=== PATIENT | female | born 1955 | race Caucasian/White ===

== ENCOUNTER 2017-05-15 05:22 | Emergency (ER) | payer OTHER ==
[~2017-05-15] VITALS: Ht 154.9 cm; Wt 66.2 kg
[~2017-05-15 05:22] MED LIST: LEVO125T5 PO; LIPITOR80 MG PO; OMEG1CAP16 PO; TELM80TA PO
[2017-05-15] MEDS ORDERED: IOHEXOL 240 MG/ML 50ML VIAL. ONE (06:27)
[2017-05-15] MEDS ORDERED: IV NORMAL SALINE 1,000ML 1,000 ML IV SCH (06:30)
[2017-05-15] MEDS ORDERED: MORPHINE SULFATE 4 MG/ML DISP.SYRIN. IV/SQ PRN (06:30)
[2017-05-15 06:32] LABS: BASO % 0 % (0-3); EOS # 0.1 x10^3/uL (0.0-0.7); EOS % 1 % (0-3); HEMATOCRIT 37.3 % (36.0-47.0); HEMOGLOBIN 12.3 g/dL (12.0-15.5); LYMPH # 1.2 x10^3/uL (1.0-4.8); LYMPH % 10 % (24-48); MEAN CORPUSCULAR HEMOGLOBIN 28 pg (25-35); MEAN CORPUSCULAR HGB CONC 33 g/dL (31-37); MEAN CORPUSCULAR VOLUME 84 fL (79-100); MONO # 1.2 x10^3/uL (0.0-1.1); MONO % 11 % (0-9); NEUT # 9.2 x10^3uL (1.8-7.7); NEUT % 78 % (31-73); PLATELET COUNT 245 x10^3/uL (140-400); RED BLOOD COUNT 4.43 x10^6/uL (3.50-5.40); RED CELL DISTRIBUTION WIDTH 15.1 % (11.5-14.5); WHITE BLOOD COUNT 11.8 x10^3/uL (4.0-11.0)
[2017-05-15 06:34] LABS: ALBUMIN 3.4 g/dL (3.4-5.0); ALBUMIN/GLOBULIN RATIO 0.8 (1.0-1.7); CALCIUM 9.5 mg/dL (8.5-10.1); CREATININE 0.9 mg/dL (0.6-1.0); GFR 63.2; POTASSIUM 3.6 mmol/L (3.5-5.1); TOTAL BILIRUBIN 0.7 mg/dL (0.2-1.0); TOTAL PROTEIN 7.8 g/dL (6.4-8.2)
[2017-05-15 06:34] LABS: BACTERIA,URINE 0 /HPF (0-FEW); BILIRUBIN,URINE NEG (NEG); CLARITY,URINE CLEAR; COLOR,URINE YELLOW; GLUCOSE,URINE NEG (NEG); HYALINE CASTS, URINE OCC /HPF; NITRITE,URINE NEG (NEG); RBC,URINE OCC /HPF (0-2); SQUAMOUS EPITHELIAL CELL,UR FEW /LPF; UROBILINOGEN,URINE 0.2 mg/dL (0.2 mg/dL); WBC,URINE OCC /HPF (0-4)
[2017-05-15] MEDS ORDERED: CONTRAST GIVEN MC PRN (06:45)
[2017-05-15 06:46] LABS: AMPHETAMINE/METHAMPHETAMINE NEG (NEG); BARBITURATES NEG (NEG); BENZODIAZEPINES NEG (NEG); CANNABINOIDS NEG (NEG); COCAINE NEG (NEG); METHADONE NEG (NEG); OPIATES NEG (NEG); PHENCYCLIDINE NEG (NEG)
[2017-05-15] MEDS ORDERED: IOHEXOL 300 MG/ML 75 ML VIAL. IV ONE (07:00)
[2017-05-15] MEDS ORDERED: ONDANSETRON PF 4 MG/2 ML VIAL. IV ONE (07:00)
[2017-05-15] MEDS ORDERED: PROMETHAZINE 25 MG/ML VIAL IV ONE (07:20)
[2017-05-15] MEDS ORDERED: PROMETHAZINE 12.5 MG in IV NORMAL SALINE 50ML 50 ML IV PRN (07:30)
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
--- NOTE | 2017-05-15 08:13 | RAD ---
CT scan of the abdomen with IV contrast: History: 40 days of lower abdominal pain. Comparison:None. Procedure: Contiguous axial images of the abdomen were performed after the administration of 75 cc of Omni 300 IV contrast and without oral contrast. Findings: There is an infrarenal abdominal aortic aneurysm that measures as great as 5.0 cm in width and 4.5 cm in AP dimension. Liver: Unremarkable. Spleen: Unremarkable. Pancreas: Unremarkable. Adrenal Glands: Unremarkable. Right Kidney: Unremarkable. Left Kidney: Unremarkable. Aorta: Normal. There is no mass or lymphadenopathy. There is no free air. There is no free fluid. There has been prior cholecystectomy. CT of pelvis with contrast: The uterus is within normal limits. The ovaries appear within normal limits. There is no lymphadenopathy or free fluid. The bladder appears normal. There is pericolonic inflammation around a short segment of the proximal sigmoid colon mild wall thickening. There is moderate sigmoid diverticulosis. The appendix is normal. Impression: 1. Diverticulitis involving the proximal sigmoid colon. 2. Infrarenal abdominal aortic aneurysm.
[2017-05-15] MEDS ORDERED: CIPROFLOXACIN 400MG PREMIX 200 ML IV ONE (08:30)
[2017-05-15 09:14] VITALS: BP 137/88
--- NOTE | 2017-05-15 18:47 | EKG ---
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
== END 2017-05-15 09:32 | disposition short-term general hospital (02) ==
LOC: ER 05:22
DX: K57.92 Diverticulitis of intestine, part unspecified, without perforation or abscess without bleeding (principal); I71.4 Abdominal aortic aneurysm, without rupture; E78.5 Hyperlipidemia, unspecified; E11.9 Type 2 diabetes mellitus without complications; E03.9 Hypothyroidism, unspecified; I10 Essential (primary) hypertension; Z88.1 Allergy status to other antibiotic agents
CPT/HCPCS: 36415; 74177; 80053; 80307; 81001; 83605; 83690; 85025; 93005; 96361; 96365; 96366; 96368; 96375; 99285; G0480; J0744; J2270; J2405; J2550; Q9967; G0479; J7030

== ENCOUNTER 2017-06-14 12:37 | Emergency (ER) | payer OTHER ==
[~2017-06-14] VITALS: Ht 154.9 cm; Wt 66.2 kg
[2017-06-14] MEDS ORDERED: IV NORMAL SALINE 1,000ML 1,000 ML IV SCH (13:26)
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
[2017-06-14 13:37] LABS: BASO % 1 % (0-3); EOS # 0.1 x10^3/uL (0.0-0.7); EOS % 1 % (0-3); HEMATOCRIT 34.8 % (36.0-47.0); HEMOGLOBIN 11.7 g/dL (12.0-15.5); LYMPH # 1.6 x10^3/uL (1.0-4.8); LYMPH % 22 % (24-48); MEAN CORPUSCULAR HEMOGLOBIN 28 pg (25-35); MEAN CORPUSCULAR HGB CONC 34 g/dL (31-37); MEAN CORPUSCULAR VOLUME 85 fL (79-100); MONO # 0.4 x10^3/uL (0.0-1.1); MONO % 6 % (0-9); NEUT # 5.1 x10^3uL (1.8-7.7); NEUT % 70 % (31-73); PLATELET COUNT 275 x10^3/uL (140-400); RED CELL DISTRIBUTION WIDTH 17.4 % (11.5-14.5); WHITE BLOOD COUNT 7.3 x10^3/uL (4.0-11.0)
[2017-06-14] MEDS ORDERED: ONDANSETRON PF 4 MG/2 ML VIAL. IV ONE (13:45)
[2017-06-14 13:46] LABS: ALBUMIN 3.6 g/dL (3.4-5.0); ALBUMIN/GLOBULIN RATIO 0.9 (1.0-1.7); CALCIUM 9.2 mg/dL (8.5-10.1); CREATININE 0.9 mg/dL (0.6-1.0); GFR 63.2; POTASSIUM 3.2 mmol/L (3.5-5.1); TOTAL BILIRUBIN 0.5 mg/dL (0.2-1.0); TOTAL PROTEIN 7.6 g/dL (6.4-8.2)
[2017-06-14 13:47] LABS: BACTERIA,URINE 0 /HPF (0-FEW); BILIRUBIN,URINE NEG (NEG); CLARITY,URINE CLEAR; COLOR,URINE STRAW; GLUCOSE,URINE NEG (NEG); NITRITE,URINE NEG (NEG); RBC,URINE 0 /HPF (0-2); SQUAMOUS EPITHELIAL CELL,UR OCC /LPF; UROBILINOGEN,URINE 0.2 mg/dL (0.2 mg/dL); WBC,URINE 0 /HPF (0-4)
[2017-06-14] MEDS ORDERED: IOHEXOL 300 MG/ML 75 ML VIAL. IV ONE (14:00)
--- NOTE | 2017-06-14 14:09 | RAD ---
EXAM: CHEST 1 VIEW history: Dizziness COMPARISON: 06/14/2017 TECHNIQUE: Single portable radiograph of the chest FINDINGS: The cardiac silhouette is unremarkable. The lungs are clear bilaterally. The costophrenic sulci are clear and well demarcated. IMPRESSION: No radiographic evidence of an acute cardiopulmonary process.
--- NOTE | 2017-06-14 14:12 | EKG ---
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
[2017-06-14] MEDS ORDERED: POTASSIUM CHLORIDE 20 MEQ TABLET.ER. PO ONE (14:30)
--- NOTE | 2017-06-14 14:34 | RAD ---
Examination: CT of the abdomen pelvis with IV contrast History: History of abdominal pain, distention, and leg numbness Comparison: 05/15/2017 Technique: Axial CT images of the abdomen pelvis were performed with IV contrast. Coronal and sagittal reformats are performed PQRS Compliance Statement: One or more of the following individualized dose reduction techniques were utilized for this examination: 1. Automated exposure control 2. Adjustment of the mA and/or kV according to patient size 3. Use of iterative reconstruction technique Findings: The visualized bibasal lungs are clear. No evidence of free air identified in the abdomen. Few scattered cystic foci identified in the liver measuring up to 1 cm in the left lobe likely cysts. Cholecystectomy clips are identified. The visualized spleen, adrenals grossly appears unremarkable. The bladder is mildly distended. The visualized pancreas grossly appears unremarkable. The small bowel is nondilated. Feces and gas noted in the colon. There is minimal fat stranding identified about the descending colon could be due to nondistention or mild colitis. Multiple sigmoid colon diverticulosis identified. Urinary bladder is moderately distended. The bilateral ureters are mildly distended. The visualized uterus, adnexa grossly appears unremarkable. Bilateral kidneys enhance symmetrically. Mild prominent appearing bilateral extrarenal pelvis. Infrarenal abdominal aortic surgical changes identified. No evidence of lytic bony destructive lesion. Mild degenerative changes lumbar spine. Impression: 1. Minimal fat stranding identified about the descending colon could be due to nondistention or mild colitis. 2. Multiple sigmoid colon diverticulosis. 3. Surgical changes of infrarenal abdominal aortic aneurysm repair. 4. Moderately distended urinary bladder and bilateral ureters.
[2017-06-14] MEDS ORDERED: METR500T PO (15:11)
[2017-06-14 15:28] VITALS: BP 144/85
[2017-06-14] MEDS ORDERED: metroNIDAZOLE 500 MG TABLET PO ONE (15:30)
[2017-06-14] MEDS ORDERED: FLUCONAZOLE 100 MG TABLET. PO ONE (15:30)
== END 2017-06-14 15:35 | disposition home or self-care (01) ==
LOC: ER 12:37
DX: K52.9 Noninfective gastroenteritis and colitis, unspecified (principal); E87.6 Hypokalemia; I71.4 Abdominal aortic aneurysm, without rupture; E03.9 Hypothyroidism, unspecified; E11.9 Type 2 diabetes mellitus without complications; E78.5 Hyperlipidemia, unspecified; I10 Essential (primary) hypertension; Z90.49 Acquired absence of other specified parts of digestive tract; Z88.1 Allergy status to other antibiotic agents
CPT/HCPCS: 36415; 71045; 74177; 80053; 81001; 82550; 83690; 84484; 85025; 87040; 93005; 96374; 99285; J2405; Q9967; J7030

== ENCOUNTER 2017-10-12 23:54 | Inpatient (IN) | payer OTHER ==
[~2017-10-12] VITALS: Ht 154.9 cm; Wt 65.1 kg
[~2017-10-12 23:54] MED LIST changes: +METR500T PO
--- NOTE | 2017-10-12 23:59 | ED.ADGEN ---
Past History Past Medical History: Cancer, Diabetes, High Cholesterol, Hypertension, Hypothyroid, Other Past Surgical History: Cholecystectomy, Other Alcohol Use: None Drug Use: None Adult General Chief Complaint Chief Complaint " .. I ve been sick the last few days... I been running a fever.. I maybe over did painting... the last couple days... I did have aortic repair in .. May. ... but I so dry... and weak.. and wobble.. dizzy..." HPI HPI Patient is a 61 year old female who presents with above hx and complaints presents with dizziness, nausea, coughing, dyspnea, fever, and generalized malaise and myalgia. Patient arrived of fever was 102.7. Patient denies any specific ill contacts or travel. Patient has not had any changes in meds. Patient denies any history of immunosuppression. Patient normally follows with Dr. Snow. Review of Systems Review of Systems Constitutional: History of fever or chills [] Eyes: Denies change in visual acuity, redness, or eye pain [] HENT: Denies nasal congestion or sore throat [] Respiratory: History of cough and shortness of breath [] Cardiovascular: No additional information not addressed in HPI [] GI: Denies abdominal pain, nausea, vomiting, bloody stools or diarrhea [] : Denies dysuria or hematuria [] Musculoskeletal: Denies back pain or joint pain [] Integument: Denies rash or skin lesions [] Neurologic: Denies headache, pains of generalized weakness. Denies sensory changes [] Endocrine: Denies polyuria or polydipsia [] All other systems were reviewed and found to be within normal limits, except as documented in this note. Family History Family History Noncontributory Current Medications Current Medications Current Medications Medications (Trade) Dose Ordered Sig/Maxime Start Time Stop Time Status Last Admin Dose Admin Acetaminophen (Tylenol) 1,000 mg 1X ONCE 10/13/17 01:00 10/13/17 01:01 DC 10/13/17 01:00 1,000 MG Albuterol/ Ipratropium (Duoneb) 3 ml QID 10/13/17 09:00 10/14/17 08:59 UNV Azithromycin (Zithromax) 500 mg 1X ONCE 10/13/17 01:00 10/13/17 01:01 DC 10/13/17 01:00 500 MG Ceftriaxone Sodium 1 gm/ Sodium Chloride 50 ml @ 100 mls/hr 1X ONCE 10/13/17 00:30 10/13/17 00:59 UNV Ceftriaxone Sodium (Rocephin) 1 gm ONCE ONCE 10/13/17 01:00 10/13/17 01:01 DC 10/13/17 01:05 1 GM Lactated Ringer's 1,000 ml @ 160 mls/hr Q6H15M 10/13/17 01:30 UNV Ondansetron HCl (Zofran Odt) 8 mg 1X ONCE 10/13/17 01:00 10/13/17 01:01 DC 10/13/17 01:00 8 MG Potassium Chloride (KCl Oral Soln) 40 meq 1X ONCE 10/13/17 01:45 10/13/17 01:46 UNV See nursing for home meds Allergies Allergies Allergies Coded Allergies Type Severity Reaction Last Updated Verified sulfamethoxazole Allergy Intermediate Rash 04/16/13 Yes trimethoprim Allergy Intermediate Rash 04/16/13 Yes Physical Exam Physical Exam Constitutional:in acute distress, non-toxic appearance. [] HENT: Normocephalic, atraumatic, bilateral external ears normal, oropharynx dry , no oral exudates, nose normal. [] Eyes: PERRLA, EOMI, conjunctiva normal, no discharge. [] Neck: Normal range of motion, no tenderness, supple, no stridor. [] Cardiovascular: Tachycardia Heart rate regular rhythm, no murmur [] Lungs & Thorax: Bilateral breath sounds scattered wheezes and some basilar rhonchi on auscultation [] Abdomen: Bowel sounds normal, soft, no tenderness, no masses, no pulsatile masses. [] Large midline scar from the aortic aneurysm repair. Skin: Warm, dry, no erythema, no rash. [] Poor turgor. Back: No tenderness, no CVA tenderness. [] Extremities: No tenderness, no cyanosis, no clubbing, ROM intact, no edema. [] Neurologic: Alert and oriented X 3, normal motor function, normal sensory function, no focal deficits noted. [] Psychologic: Affect anxious, judgement normal, mood normal. [] Current Patient Data Vital Signs Vital Signs Date Time Temp Pulse Resp B/P (MAP) Pulse Ox O2 Delivery O2 Flow Rate FiO2 10/12/17 23:56 99.6 102 20 93 Room Air Lab Results Laboratory Tests Test 10/13/17 00:12 10/13/17 00:27 10/13/17 00:36 Urine Collection Type Unknown Urine Color Yellow Urine Clarity Clear Urine pH 6.0 Urine Specific [place] <=1.005 Urine Protein 30 mg/dl (NEG-TRACE) Urine Glucose (UA) Neg mg/dL (NEG) Urine Ketones (Stick) Neg mg/dL (NEG) Urine Blood Small (NEG) Urine Nitrite Neg (NEG) Urine Bilirubin Neg (NEG) Urine Urobilinogen Dipstick 0.2 mg/dL (0.2 mg/dL) Urine Leukocyte Esterase Trace (NEG) Urine RBC 0 /HPF (0-2) Urine WBC 1-4 /HPF (0-4) Urine Squamous Epithelial Cells Few /LPF Urine Bacteria 0 /HPF (0-FEW) White Blood Count 7.3 x10^3/uL (4.0-11.0) Red Blood Count 4.26 x10^6/uL (3.50-5.40) Hemoglobin 12.2 g/dL (12.0-15.5) Hematocrit 35.2 % (36.0-47.0) L Mean Corpuscular Volume 83 fL (79-100) Mean Corpuscular Hemoglobin 29 pg (25-35) Mean Corpuscular Hemoglobin Concent 35 g/dL (31-37) Red Cell Distribution Width 15.4 % (11.5-14.5) H Platelet Count 195 x10^3/uL (140-400) Neutrophils (%) (Auto) 87 % (31-73) H Lymphocytes (%) (Auto) 4 % (24-48) L Monocytes (%) (Auto) 8 % (0-9) Eosinophils (%) (Auto) 1 % (0-3) Basophils (%) (Auto) 0 % (0-3) Neutrophils # (Auto) 6.4 x10^3uL (1.8-7.7) Lymphocytes # (Auto) 0.3 x10^3/uL (1.0-4.8) L Monocytes # (Auto) 0.5 x10^3/uL (0.0-1.1) Eosinophils # (Auto) 0.1 x10^3/uL (0.0-0.7) Basophils # (Auto) 0.0 x10^3/uL (0.0-0.2) Prothrombin Time 10.7 SEC (9.4-11.4) Prothrombin Time INR 1.0 (0.9-1.1) PTT 27 SEC (23-33) D-Dimer (Desiree) 2.23 mg/L (0.00-0.50) H Sodium Level 136 mmol/L (136-145) Potassium Level 2.0 mmol/L (3.5-5.1) *L Chloride Level 97 mmol/L (98-107) L Carbon Dioxide Level 33 mmol/L (21-32) H Anion Gap 6 (6-14) Blood Urea Nitrogen 12 mg/dL (7-20) Creatinine 1.4 mg/dL (0.6-1.0) H Estimated GFR (Cockcroft-Gault) 38.0 Glucose Level 135 mg/dL (70-99) H Lactic Acid Level 1.3 mmol/L (0.4-2.0) Calcium Level 8.8 mg/dL (8.5-10.1) Magnesium Level 1.7 mg/dL (1.8-2.4) L Total Bilirubin 1.1 mg/dL (0.2-1.0) H Direct Bilirubin 0.3 mg/dL (0.0-0.2) H Aspartate Amino Transferase (AST) 98 U/L (15-37) H Alanine Aminotransferase (ALT) 71 U/L (14-59) H Alkaline Phosphatase 106 U/L (46-116) Creatine Kinase 64 U/L (26-192) Creatine Kinase MB (Mass) < 0.5 ng/mL (0.0-3.6) Creatine Kinase MB Relative Index 0.8 % (0-4) Troponin I Quantitative < 0.017 ng/mL (0-0.055) UO-Ixy-D-Type Natriuretic Peptide 164 pg/mL (0-124) H Total Protein 7.7 g/dL (6.4-8.2) Albumin 3.2 g/dL (3.4-5.0) L Lipase 116 U/L (73-393) Influenza Type A (Rapid) Negative (NEGATIVE) Influenza Type B (Rapid) Negative (NEGATIVE) EKG EKG My interpretation of EKG shows a sinus rhythm at 91 bpm. There is leftward axis. Some nonspecific T changes in anterior lateral findings. But no findings of acute STEMI with contralateral changes.[] Radiology/Procedures Radiology/Procedures My interpretation of chest x-ray shows bilateral patchy pneumonia. Clips from previous gallbladder surgery. No free air under the diaphragm. Cardiomegaly.[] Course & Med Decision Making Course & Med Decision Making Pertinent Labs and Imaging studies reviewed. (See chart for details) Discussed presentation, testing, tx. plan with Dr Carlson. Will admit for further eval and tx. [] Final Impression Final Impression 1. SIRS 2. Fever[] 3. Hypokalemia 2.0 4. Hypomagnesium 5. Pneumonia 6. Dehydration 7. Elevated D-dimer Dragon Disclaimer Dragon Disclaimer This electronic medical record was generated, in whole or in part, using a voice recognition dictation system. CHAI PHELPS MD Oct 12, 2017 23:59
[2017-10-13] VITALS (8 sets, daily range): BP systolic 109–121; BP diastolic 62–75
--- NOTE | 2017-10-13 00:40 | EKG ---
[address] [address] Test Date: 2017-10-13 Test Time: 00:34:42 Pat Name: MARICARMEN LUBIN Department: Room: Gender: F Addresser: MICHELLE : 1955 Requested By: CHAI PHELPS Order Number: [id number] Reading MD: Measurements Intervals [place] Rate: 91 P: 21 NE: 154 QRS: -10 QRSD: 90 T: 146 QT: 332 QTc: 410 Interpretive Statements SINUS RHYTHM LEFTWARD AXIS QRS(T) CONTOUR ABNORMALITY CONSIDER ANTEROSEPTAL MYOCARDIAL DAMAGE ST & T ABNORMALITY, CONSIDER ANTEROLATERAL ISCHEMIA OR LEFT VENTRICULAR STRAIN INFEROLATERAL ISCHEMIA OR LEFT VENTRICULAR STRAIN ABNORMAL ECG RI6.01 Compared to ECG 06/14/2017 12:45:22 No significant changes
[2017-10-13 00:43] LABS: BACTERIA,URINE 0 /HPF (0-FEW); BILIRUBIN,URINE NEG (NEG); CLARITY,URINE CLEAR; COLOR,URINE YELLOW; GLUCOSE,URINE NEG (NEG); NITRITE,URINE NEG (NEG); RBC,URINE 0 /HPF (0-2); SQUAMOUS EPITHELIAL CELL,UR FEW /LPF; UROBILINOGEN,URINE 0.2 mg/dL (0.2 mg/dL)
[2017-10-13 00:54] LABS: BASO % 0 % (0-3); EOS # 0.1 x10^3/uL (0.0-0.7); EOS % 1 % (0-3); HEMATOCRIT 35.2 % (36.0-47.0); HEMOGLOBIN 12.2 g/dL (12.0-15.5); LYMPH # 0.3 x10^3/uL (1.0-4.8); LYMPH % 4 % (24-48); MEAN CORPUSCULAR HEMOGLOBIN 29 pg (25-35); MEAN CORPUSCULAR HGB CONC 35 g/dL (31-37); MEAN CORPUSCULAR VOLUME 83 fL (79-100); MONO # 0.5 x10^3/uL (0.0-1.1); MONO % 8 % (0-9); NEUT # 6.4 x10^3uL (1.8-7.7); NEUT % 87 % (31-73); PLATELET COUNT 195 x10^3/uL (140-400); RED BLOOD COUNT 4.26 x10^6/uL (3.50-5.40); RED CELL DISTRIBUTION WIDTH 15.4 % (11.5-14.5); WHITE BLOOD COUNT 7.3 x10^3/uL (4.0-11.0)
[2017-10-13] MEDS ORDERED: cefTRIAXone IV Push 1 GM VIAL. IVP ONE (01:00)
[2017-10-13] MEDS ORDERED: IV RINGERS SOLUTION,LACTATED 1,000 ML IV SCH (01:00)
[2017-10-13] MEDS ORDERED: AZITHROMYCIN 250 MG TABLET. PO ONE (01:00)
[2017-10-13] MEDS ORDERED: ACETAMINOPHEN 500 MG TABLET PO ONE (01:00)
[2017-10-13] MEDS ORDERED: ONDANSETRON ODT 4 MG TAB.RAPDIS PO ONE (01:00)
--- NOTE | 2017-10-13 01:06 | RAD ---
Indication: Cough, fever, nausea and fainting. TECHNIQUE: PA and lateral views of the chest COMPARISON: Study from 06/14/2017 FINDINGS: Heart is normal in size. Mild bilateral interstitial opacities are seen. No focal consolidation. No pneumothorax or pleural effusion. Visualized bony thorax within normal limits. IMPRESSION: Findings suggests atypical or viral infection in right clinical setting. Electronically signed by: David Gill DO (10/13/2017 1:02 AM) [facility]
[2017-10-13 01:12] LABS: ALBUMIN 3.2 g/dL (3.4-5.0); ALK PHOS 106 U/L (46-116); ALT (SGPT) 71 U/L (14-59); ANION GAP 6 (6-14); AST (SGOT) 98 U/L (15-37); BLOOD UREA NITROGEN 12 mg/dL (7-20); CALCIUM 8.8 mg/dL (8.5-10.1); CARBON DIOXIDE 33 mmol/L (21-32); CHLORIDE 97 mmol/L (98-107); CREATININE 1.4 mg/dL (0.6-1.0); DIRECT BILIRUBIN 0.3 mg/dL (0.0-0.2); GLUCOSE 135 mg/dL (70-99); LIPASE 116 U/L (73-393); MAGNESIUM 1.7 mg/dL (1.8-2.4); SODIUM 136 mmol/L (136-145); TOTAL BILIRUBIN 1.1 mg/dL (0.2-1.0); TOTAL PROTEIN 7.7 g/dL (6.4-8.2)
[2017-10-13 01:20] LABS: INFLUENZA A PATIENT NEGATIVE (NEGATIVE); INFLUENZA B PATIENT NEGATIVE (NEGATIVE)
[2017-10-13] MEDS: IV RINGERS SOLUTION,LACTATED 1,000 ML IV SCH ×2 (01:40→07:21)
[2017-10-13] MEDS ORDERED: POTASSIUM CHLORIDE 20 MEQ/15 ML ORAL LIQUID. PO ONE (01:45)
[2017-10-13] MEDS ORDERED: ENOXAPARIN ** NOTE DOSE ** SYRINGE SQ ONE (02:00)
--- NOTE | 2017-10-13 04:19 | NUR ---
PT arrives via EMS from the ED at this time. PT is A&O, VSS, afebrile.
[2017-10-13] MEDS: IPRATRPIUM/ALBUTEROL 0.5/2.5MG 3 ML NEBU. NEB SCH ×4 (04:59→20:17)
[2017-10-13] MEDS ORDERED: OMEGA-3 FATTY ACIDS/FISH OIL 1,000 MG CAPSULE. PO SCH (09:00)
--- NOTE | 2017-10-13 09:00 | NUR ---
pt up to BR with assist. c/o abdominal discomfort with palpation. States she could tolerate a clear liquid breakfast. Abd slightly distended.
[2017-10-13] MEDS: LOSARTAN 50 MG TABLET. PO SCH (09:09)
[2017-10-13] MEDS: LEVOTHYROXINE 125 MCG TABLET PO SCH (09:09)
[2017-10-13] MEDS: ENOXAPARIN ** NOTE DOSE ** SYRINGE SQ SCH ×2 (09:10→22:25)
--- NOTE | 2017-10-13 10:30 | NUR ---
pt c/o ROJAS. Tylenol given. Pt up to BR. stated she had a small BM. Tolerated jello and juice.
[2017-10-13] MEDS: ACETAMINOPHEN 325 MG TABLET PO PRN ×2 (11:25→20:16)
[2017-10-13 12:27] LABS: CALCIUM 8.6 mg/dL (8.5-10.1); CREATININE 1.4 mg/dL (0.6-1.0)
[2017-10-13 12:30] LABS: POTASSIUM 2.4 mmol/L (3.5-5.1)
[2017-10-13] MEDS: POTASSIUM CHLORIDE 20 MEQ TABLET.ER. PO SCH ×3 (12:30→17:27)
[2017-10-13] MEDS ORDERED: DEXTROSE 50% 25 GM / 50ML DISP.SYRIN. IV PRN ×2 (12:30→17:30)
[2017-10-13] MEDS ORDERED: MAGNESIUM SULFATE 2GM 50 ML IV ONE (12:30)
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
--- NOTE | 2017-10-13 12:45 | NUR ---
pt down to have VQ scan and CT abdomen.
[2017-10-13] MEDS ORDERED: IOHEXOL 240 MG/ML 50ML VIAL. ONE (12:47)
[2017-10-13] MEDS: POTASSIUM CL 40MEQ D5-0.45NACL 1,000 ML IV SCH (13:02)
--- NOTE | 2017-10-13 13:31 | RAD ---
VQ Scan: Clinical History: Dyspnea for 2 weeks. Technique: 18.5 mCi of xenon-133 was administered as an aerosol and spot views were obtained on a gamma camera for a Nuclear Medicine ventilation examination. 5.5 mCi of Tc 99m MAA was administered intravenously and spot views were obtained on the gamma camera for a Nuclear Medicine perfusion examination. Static images were reviewed as a V/Q scan in order to exclude pulmonary embolism. Findings: There is mild diffuse heterogeneity of activity on the ventilation study. Perfusion images are homogeneous without perfusion defects. Impression: Very low probability for pulmonary embolism. Electronically signed by: Blu Yarbrough MD (10/13/2017 1:28 PM) [id number]
--- NOTE | 2017-10-13 14:08 | RAD ---
Bilateral lower extremity venous duplex study 10/13/2017 12:57 PM Clinical History: Lower extremity edema.. Elevated d-dimer. Comparison: None available Technique: Using a combination of real time ultrasound imaging and color-flow and pulse Doppler imaging techniques along with graded compression and augmentation, duplex evaluation of the deep venous system of the both lower extremities was performed. Multiple images were obtained. Findings: There is no sonographic evidence of deep venous thrombosis involving the visualized deep venous structures of either lower extremity. Impression: No evidence of deep venous thrombosis Electronically signed by: Jhon Vieira MD (10/13/2017 2:04 PM) [facility]
--- NOTE | 2017-10-13 15:02 | RAD ---
Examination: CT of the abdomen pelvis without contrast HISTORY: History of abdominal pain, diverticulitis, history of abdominal aortic aneurysm repair COMPARISON: 06/14/2017 TECHNIQUE: Axial CT images of the abdomen pelvis were performed with oral contrast. Coronal and sagittal reformats are performed Exposure: One or more of the following individualized dose reduction techniques were utilized for this examination: 1. Automated exposure control 2. Adjustment of the mA and/or kV according to patient size 3. Use of iterative reconstruction technique FINDINGS: The bibasilar lungs are clear. No evidence of free air identified in the abdomen. The evaluation of the solid organs is limited due to lack of IV contrast. The visualized noncontrasted liver, spleen, adrenals grossly appears unremarkable. Cholecystectomy clips identified. The stomach is mildly distended. The visualized pancreas grossly appears unremarkable. The small bowel is nondilated. Feces and gas noted in the colon. Multiple sigmoid colon diverticulosis identified. There is minimal fat stranding identified about the sigmoid colon best visualized on series 2 image #121. No evidence of intrarenal collecting system calculi. Mild prominent bilateral extrarenal pelvis. Infrarenal abdominal aortic repair changes. Moderate degenerative changes lumbar spine. Small amount of air identified in the anterior abdominal wall likely secondary to injections. IMPRESSION: 1. Mild fat stranding identified about the sigmoid colon likely mild diverticulitis. 2. Sigmoid colon diverticulosis. 3. Abdominal aortic repair changes. Electronically signed by: Blu Yarbrough MD (10/13/2017 2:58 PM) [id number]
[2017-10-13] MEDS: INSULIN LISPRO 300 UNITS/3 ML INSULN.PEN. SQ SCH (17:28)
[2017-10-13] MEDS ORDERED: DEXTROSE ORAL GEL 15 GM TUBE. PO PRN (17:30)
[2017-10-13 19:03] LABS: CALCIUM 8.8 mg/dL (8.5-10.1); CREATININE 1.4 mg/dL (0.6-1.0); POTASSIUM 3.2 mmol/L (3.5-5.1)
[2017-10-13] MEDS: oxyCODONE IR 5 MG TABLET PO PRN (20:15)
[2017-10-13] MEDS: LACTOBACILLUS RHAMNOSUS GG 1 CAPSULE. PO SCH (22:24)
[2017-10-13] MEDS: ATORVASTATIN CALCIUM 20 MG TABLET PO SCH (22:24)
[2017-10-13] MEDS: cefTRIAXone IV Push 1 GM VIAL. IVP SCH (22:25)
--- NOTE | 2017-10-13 22:49 | PN ---
DATE: 10/13/2017 SUBJECTIVE: The patient is resting slightly propped up in bed, in no apparent distress. Her abdomen is slightly better. She did have some nasal congestion and a low-grade fever as well as polyuria. Denied any nausea or vomiting. Denied any diarrhea. OBJECTIVE: GENERAL: When I examined her, she looked pale, no jaundice, cyanosis, or thyromegaly. No jugular venous distension. No lower limb edema. VITAL SIGNS: Her heart rate was 111, blood pressure 109/62, temperature was 99.7, respiratory rate was 18, and oxygen saturation was 96% on room air. HEAD, EYES, EARS, NOSE AND THROAT: Showed normocephalic, atraumatic. NECK: Supple. HEART: Showed normal first and second heart sounds. No gallop, rub or murmur. CHEST: Clear to auscultation. No crepitation or rhonchi. ABDOMEN: Distended, soft, nontender. No guarding or rigidity. No organomegaly. Her hernial orifice is intact. Bowel sounds normal. NEUROLOGIC: She is grossly intact. Her intake over the last 24 hours was 2390. No output was recorded. LABORATORY DATA: Her lab work this morning showed a white cell count 7300, hemoglobin 12, hematocrit 35, MCV 83, and platelet count 295,000. Her repeat lab work this morning shows serum sodium 140, potassium 2.4, chloride 102, bicarbonate 32, anion gap of 6, BUN 10, creatinine 1.4, estimated GFR was 38, blood glucose was 188, calcium was 8.6. ASSESSMENT: This is a 61-year-old female patient who was admitted with, 1. Fever, pneumonia. 2. Systemic inflammatory response syndrome. 3. Hypokalemia. 4. Hypomagnesemia. 5. Dehydration. 6. Elevated D-dimer. The patient did not have any nausea or vomiting, did not have any diarrhea or constipation. She is not on diuretic. She has previous history of hypokalemia. PLAN: The plan is to start her on oral potassium supplement, continue with IV fluid in the form of D5 half normal with 40 mEq of potassium chloride. We will monitor her lab work today and again tomorrow, continue with IV antibiotic, and check her hemoglobin A1c. We will do Accu-Cheks also before meals with low dose insulin sliding scale. CHACHA WYMAN MD DR: Tia JOB#: [id number] / [id number]
[2017-10-14] VITALS (23 sets, daily range): BP systolic 87–139; BP diastolic 51–81
[2017-10-14] MEDS: POTASSIUM CL 40MEQ D5-0.45NACL 1,000 ML IV SCH ×2 (01:39→18:31)
[2017-10-14] MEDS: IPRATRPIUM/ALBUTEROL 0.5/2.5MG 3 ML NEBU. NEB SCH ×4 (05:29→20:00)
[2017-10-14 06:19] LABS: BASO % 0 % (0-3); EOS # 0.1 x10^3/uL (0.0-0.7); EOS % 3 % (0-3); HEMATOCRIT 33.1 % (36.0-47.0); LYMPH # 0.3 x10^3/uL (1.0-4.8); LYMPH % 6 % (24-48); MEAN CORPUSCULAR HEMOGLOBIN 28 pg (25-35); MEAN CORPUSCULAR HGB CONC 33 g/dL (31-37); MEAN CORPUSCULAR VOLUME 85 fL (79-100); MONO # 0.4 x10^3/uL (0.0-1.1); MONO % 9 % (0-9); NEUT # 3.8 x10^3uL (1.8-7.7); NEUT % 82 % (31-73); PLATELET COUNT 168 x10^3/uL (140-400); RED BLOOD COUNT 3.89 x10^6/uL (3.50-5.40); RED CELL DISTRIBUTION WIDTH 16.2 % (11.5-14.5); WHITE BLOOD COUNT 4.6 x10^3/uL (4.0-11.0)
[2017-10-14] MEDS: LEVOTHYROXINE 125 MCG TABLET PO SCH (06:20)
[2017-10-14 06:48] LABS: ALBUMIN 2.8 g/dL (3.4-5.0); ALBUMIN/GLOBULIN RATIO 0.6 (1.0-1.7); CALCIUM 8.7 mg/dL (8.5-10.1); CREATININE 1.2 mg/dL (0.6-1.0); GFR 45.4; POTASSIUM 3.4 mmol/L (3.5-5.1); TOTAL PROTEIN 7.2 g/dL (6.4-8.2)
[2017-10-14] MEDS: LOSARTAN 50 MG TABLET. PO SCH (08:18)
[2017-10-14] MEDS: LACTOBACILLUS RHAMNOSUS GG 1 CAPSULE. PO SCH ×2 (08:25→21:30)
[2017-10-14] MEDS: ENOXAPARIN ** NOTE DOSE ** SYRINGE SQ SCH (08:26)
[2017-10-14] MEDS: INSULIN LISPRO 300 UNITS/3 ML INSULN.PEN. SQ SCH ×3 (08:38→16:47)
[2017-10-14] MEDS ORDERED: AZITHROMYCIN 250 MG TABLET. PO SCH (09:00)
[2017-10-14] MEDS: oxyCODONE IR 5 MG TABLET PO PRN (11:07)
[2017-10-14] MEDS ORDERED: ONDANSETRON PF 4 MG/2 ML VIAL. ONE (13:52)
[2017-10-14] MEDS: ONDANSETRON PF 4 MG/2 ML VIAL. IV PRN (14:10)
[2017-10-14] MEDS: ATORVASTATIN CALCIUM 20 MG TABLET PO SCH (15:16)
--- NOTE | 2017-10-14 15:16 | NUR ---
Nursing Note: Pt's Cozaar held this AM d/t pt's BP had been low at change of shift. BPs continued to be WNL or low for the rest of the AM so pt's Cozaar not administered. Atorvastatin to be held tonight per Dr. Carlson r/t elevated AST and ALT. Repeat labs in AM.
[2017-10-14] MEDS: cefTRIAXone IV Push 1 GM VIAL. IVP SCH (21:30)
[2017-10-14] MEDS: ACETAMINOPHEN 325 MG TABLET PO PRN (22:07)
--- NOTE | 2017-10-14 22:18 | PN ---
DATE: 10/14/2017 SUBJECTIVE: The patient is resting, slightly propped up, sleeping comfortably. She apparently did complain of headache, spiked her temperature of about 100.5 this morning, has had some nausea and abdominal pain that has subsided by the time I saw her. PHYSICAL EXAMINATION: GENERAL: When I examined her this afternoon, she looked well and was clearly in no apparent respiratory distress, pale, but no jaundice, cyanosis, or thyromegaly. No jugular venous distension. No limb edema. VITAL SIGNS: Her heart rate was 83, blood pressure was 104/51, temperature was 98.3, respiratory rate was 18, and oxygen saturation was 94%. HEAD, EYES, EARS, NOSE, AND THROAT: Showed normocephalic, atraumatic. NECK: Supple. HEART: Showed normal first and second heart sounds. No gallop, rub, or murmur. CHEST: Clear to auscultation. No crepitation or rhonchi. ABDOMEN: Distended, soft, nontender. No guarding or rigidity. No organomegaly. All hernial orifices intact. Bowel sounds normal. NEUROLOGIC: She is awake, alert, responding appropriately. All cranial nerves intact. She moves extremities without difficulty. She ambulates without assistance or assistive devices. Her intake over the last 24 hours was 3564, no output was recorded. LABORATORY DATA: Her lab work showed a white cell count 4600, hemoglobin 11, hematocrit 33, MCV 85, and platelet count of 168,000. Her chemistry showed a serum sodium 140, potassium 3.4, chloride 103, bicarbonate 29, anion gap of 8, BUN 7, creatinine 1.2, estimated GFR was 45 mL per minute. Her glucose 158, calcium was 8.7. Total bilirubin is normal; however, AST, ALT, alkaline phosphatase has dramatically risen. Her prothrombin time was 7.2, INR of 2.8. She has had a CT scan of the abdomen with oral contrast, which showed that the patient's bibasilar lungs are clear. No evidence of free air identified in the abdomen. The evaluation of the solid organs is limited due to lack of IV contrast. The visualized noncontrasted liver, spleen, adrenals are grossly appears unremarkable. Cholecystectomy clips identified. The stomach is mildly distended. The visualized pancreas grossly appears unremarkable. The small bowel is nondilated. Feces and gas noted in the colon with multiple sigmoid colon diverticulosis identified. There is minimal fat stranding identified about the sigmoid colon, best visualized on series 2 image 121, no evidence of intrarenal collecting system calculi, mild prominent bilateral extrarenal pelvis intrarenal abdominal aortic repair changes, moderate degenerative changes of lumbar spine, small amount of air identified in the anterior abdominal wall, likely secondary to injection. With the impression is that the patient has mild fat stranding identified around about the sigmoid colon, likely mild diverticulitis, sigmoid colon diverticulosis, abdominal aortic repair changes. ASSESSMENT: 1. The patient came in with fever, questionable pneumonia. She has systemic inflammatory response syndrome. 2. Hypokalemia, resolved. 3. Hypomagnesemia, resolved. 4. Dehydration, resolved. 4. She has elevated D-dimer; however, her chest CT angio did not reveal any pulmonary emboli. PLAN: My plan is to continue with IV antibiotic. I will discontinue the Zithromax and ceftriaxone and switch her to Zosyn and continue the IV fluid and Zithromax. Continue with the potassium supplement and also cut down her Lovenox to only a therapeutic dose. CHACHA WYMAN MD DR: QUINTON/oksana JOB#: [id number] / [id number]
[2017-10-15] VITALS (10 sets, daily range): BP systolic 86–139; BP diastolic 47–86
[2017-10-15 03:09] LABS: HEMOGLOBIN A1C 6.3 % (4.8-5.6)
[2017-10-15] MEDS: POTASSIUM CL 40MEQ D5-0.45NACL 1,000 ML IV SCH ×2 (03:19→20:11)
[2017-10-15] MEDS: IPRATRPIUM/ALBUTEROL 0.5/2.5MG 3 ML NEBU. NEB SCH ×5 (04:57→20:00)
[2017-10-15] MEDS: LEVOTHYROXINE 125 MCG TABLET PO SCH (06:07)
[2017-10-15 06:18] LABS: BASO % 1 % (0-3); EOS # 0.3 x10^3/uL (0.0-0.7); EOS % 9 % (0-3); HEMATOCRIT 29.6 % (36.0-47.0); HEMOGLOBIN 9.9 g/dL (12.0-15.5); LYMPH # 0.3 x10^3/uL (1.0-4.8); LYMPH % 11 % (24-48); MEAN CORPUSCULAR HEMOGLOBIN 29 pg (25-35); MEAN CORPUSCULAR HGB CONC 34 g/dL (31-37); MEAN CORPUSCULAR VOLUME 85 fL (79-100); MONO # 0.4 x10^3/uL (0.0-1.1); MONO % 13 % (0-9); NEUT # 1.9 x10^3uL (1.8-7.7); NEUT % 67 % (31-73); PLATELET COUNT 164 x10^3/uL (140-400); RED CELL DISTRIBUTION WIDTH 16.1 % (11.5-14.5); WHITE BLOOD COUNT 2.9 x10^3/uL (4.0-11.0)
[2017-10-15 06:23] LABS: ALBUMIN 2.4 g/dL (3.4-5.0); ALBUMIN/GLOBULIN RATIO 0.6 (1.0-1.7); CALCIUM 8.5 mg/dL (8.5-10.1); POTASSIUM 3.7 mmol/L (3.5-5.1); TOTAL PROTEIN 6.3 g/dL (6.4-8.2)
[2017-10-15] MEDS: INSULIN LISPRO 300 UNITS/3 ML INSULN.PEN. SQ SCH ×3 (08:00→17:00)
[2017-10-15] MEDS: LACTOBACILLUS RHAMNOSUS GG 1 CAPSULE. PO SCH ×2 (09:18→20:08)
[2017-10-15] MEDS: ENOXAPARIN 30 MG/0.3 ML SYRINGE. SQ SCH (09:19)
[2017-10-15] MEDS: MEROPENEM 1 GM in IV NORMAL SALINE 100ML 100 ML IV SCH ×2 (12:04→23:03)
[2017-10-15] MEDS: ACETAMINOPHEN 325 MG TABLET PO PRN (16:15)
[2017-10-15] MEDS: ATORVASTATIN CALCIUM 20 MG TABLET PO SCH (20:08)
[2017-10-16 00:53] VITALS: BP 154/85
--- NOTE | 2017-10-16 03:11 | PN ---
DATE: SUBJECTIVE: The patient is resting, slightly propped up, in no apparent distress. Awake and alert. Questioning her, denied any further episodes of headache. No nausea or vomiting, no abdominal pain. She is tolerating her food. PHYSICAL EXAMINATION: GENERAL: When I examined her, she was pale, no jaundice, cyanosis, or thyromegaly. No jugular venous distension. No lower limb edema. VITAL SIGNS: Her heart rate was 72, blood pressure 112/73, temperature was 98.3, respiratory rate was 18 and oxygen saturation was 95% on room air. HEAD, EYES, EARS, NOSE AND THROAT: Showed normocephalic, atraumatic. NECK: Supple. HEART: Showed normal first and second heart sounds with no gallop, rub or murmur. CHEST: Clear to auscultation. No crepitation or rhonchi. ABDOMEN: Distended, soft, nontender. No guarding or rigidity. No organomegaly. Hernial orifices intact. Bowel sounds normal. NEUROLOGIC: She is awake, alert, responding appropriately. Cranial nerves intact. She moves extremities without difficulty. She ambulates without assistance or assistive devices. Her intake was 3564, no output was recorded. LABORATORY DATA: Her lab work as of this morning showed a white cell count of 2900, hemoglobin 9.9, hematocrit 29.6, MCV 85 and platelet count of 164,000 with normal manual differential. Her serum sodium was 143, potassium 3.7, chloride 107, bicarbonate 29, anion gap of 7, BUN 5, creatinine 1, estimated GFR was 56 mL per minute, her glucose was 142, calcium was 8.5. Total bilirubin, AST, ALT, alkaline phosphatase are elevated. Total protein was 6.3, albumin 2.4. Her cultures are so far negative. ASSESSMENT: 1. The patient came in with fever, questionable pneumonia and with systemic inflammatory response syndrome. 2. Hypokalemia, resolved. 3. Hypomagnesemia, resolved. 4. Dehydration, resolved. 5. Elevated D-dimer; however, her chest CT angio did not reveal any pulmonary emboli. 6. CT scan of the abdomen and pelvis showed that she has diverticulitis for which we started her initially on IV ceftriaxone and Flagyl. Unfortunately, her liver enzymes are steadily rising. PLAN: My plan is to discontinue both Flagyl and ceftriaxone; however, I did switch her to meropenem 1 gram IV twice a day. Continue with potassium supplement. Continue with DVT prophylaxis. Repeat all her lab works tomorrow and decide on further management accordingly. CHACHA WYMAN MD DR: QUINTON/oksana JOB#: [id number] / [id number]
[2017-10-16] MEDS: LEVOTHYROXINE 125 MCG TABLET PO SCH (04:34)
[2017-10-16 06:12] VITALS: BP 144/81
[2017-10-16] MEDS: IPRATRPIUM/ALBUTEROL 0.5/2.5MG 3 ML NEBU. NEB SCH ×4 (06:14→21:42)
[2017-10-16 06:22] LABS: HEMATOCRIT 30.4 % (36.0-47.0); HEMOGLOBIN 10.2 g/dL (12.0-15.5); RED BLOOD COUNT 3.6 x10^6/uL (3.50-5.40); RED CELL DISTRIBUTION WIDTH 16.2 % (11.5-14.5); WHITE BLOOD COUNT 3.8 x10^3/uL (4.0-11.0)
[2017-10-16 06:35] LABS: ALBUMIN 2.6 g/dL (3.4-5.0); ALBUMIN/GLOBULIN RATIO 0.8 (1.0-1.7); CALCIUM 8.3 mg/dL (8.5-10.1); CREATININE 0.8 mg/dL (0.6-1.0); GFR 72.4; POTASSIUM 3.9 mmol/L (3.5-5.1); TOTAL BILIRUBIN 0.7 mg/dL (0.2-1.0)
[2017-10-16] MEDS: INSULIN LISPRO 300 UNITS/3 ML INSULN.PEN. SQ SCH ×3 (08:00→17:00)
[2017-10-16] MEDS: ONDANSETRON PF 4 MG/2 ML VIAL. IV PRN (08:04)
[2017-10-16] MEDS: LACTOBACILLUS RHAMNOSUS GG 1 CAPSULE. PO SCH ×2 (08:04→21:06)
[2017-10-16] MEDS: ENOXAPARIN 30 MG/0.3 ML SYRINGE. SQ SCH (08:05)
[2017-10-16] MEDS: POTASSIUM CL 40MEQ D5-0.45NACL 1,000 ML IV SCH ×2 (08:05→21:07)
[2017-10-16] MEDS: MEROPENEM 1 GM in IV NORMAL SALINE 100ML 100 ML IV SCH ×2 (11:24→21:05)
[2017-10-16 15:29] VITALS: BP 134/85
[2017-10-16] MEDS: ATORVASTATIN CALCIUM 20 MG TABLET PO SCH (21:06)
[2017-10-16 23:50] VITALS: BP 141/88
--- NOTE | 2017-10-17 05:34 | PN ---
DATE: 10/16/2017 SUBJECTIVE: The patient is resting, slightly propped up, sleeping comfortably, in no apparent distress. Questioning her, she apparently has had some nausea, has responded to Zofran. Other than that, she denied any abdominal pain. Denied any cough, phlegm or hemoptysis. Nursing staff said she had an uneventful night. PHYSICAL EXAMINATION: GENERAL: When I examined her, she looked pale, but no jaundice, cyanosis or thyromegaly. There is no jugular venous distention. No limb edema. VITAL SIGNS: Her heart rate was 71, blood pressure 144/81, temperature was 98.2, respiratory rate was 18 and oxygen saturation was 97% on room air. HEAD, EYES, EARS, NOSE AND THROAT: Showed normocephalic, atraumatic. NECK: Supple. HEART: Showed normal first and second sounds. No gallop, rub or murmur. CHEST: Clear to auscultation. No crepitation or rhonchi. ABDOMEN: Distended, soft, nontender. No guarding or rigidity. No organomegaly. Hernial orifice intact. Bowel sounds normal. NEUROLOGIC: She is awake, alert, responding appropriately. Cranial nerves intact. She moves extremities without difficulty. She ambulates without assistance or assistive devices. Her intake was 1700, no output was recorded. LABORATORY DATA: This morning showed a serum sodium of 142, potassium 3.9, chloride 107, bicarbonate 29, anion gap of 6, BUN 6, creatinine 0.8, estimated GFR was 72 mL per minute. Her glucose was 133, calcium was 8.3. Total bilirubin 0.7. Her AST, ALT, and alkaline phosphatase are elevated, but trending down. Her total protein 6, albumin 2.6. White cell count is up to 3.8, hemoglobin 10, hematocrit 30, MCV 84 and platelet count 207,000. ASSESSMENT: 1. The patient came in with fever, questionable pneumonia and with systemic inflammatory response syndrome that has resolved. 2. Hypokalemia, resolved. Her potassium today is 3.9. 3. Hypomagnesemia, resolved, her magnesium is 1.7. 4. Dehydration, resolved. 5. Elevated D-dimer; however, chest CT angio did not reveal any pulmonary emboli nor any pneumonia. 6. CT scan of the abdomen and pelvis showed that she has diverticulitis, for which we started her initially on IV ceftriaxone and Flagyl. Unfortunately, her liver enzymes are ____ rising. We did discontinue her Flagyl and ceftriaxone. She is now on meropenem. She is doing well. She is afebrile, hemodynamically stable. Her liver enzymes are trending down. We will continue with this plan of management today. I am going to discontinue her IV fluid, ask her to drink more and hopefully can discharge her tomorrow. CHACHA WYMAN MD DR: QUINTON/oksana JOB#: [id number] / [id number]
[2017-10-17] MEDS: LEVOTHYROXINE 125 MCG TABLET PO SCH (05:53)
[2017-10-17 06:05] VITALS: BP 132/83
[2017-10-17] MEDS: IPRATRPIUM/ALBUTEROL 0.5/2.5MG 3 ML NEBU. NEB SCH ×2 (06:58→09:22)
[2017-10-17 07:00] LABS: CALCIUM 8.9 mg/dL (8.5-10.1); CREATININE 0.8 mg/dL (0.6-1.0); GFR 72.4; MAGNESIUM 1.6 mg/dL (1.8-2.4); POTASSIUM 4.4 mmol/L (3.5-5.1)
[2017-10-17] MEDS: INSULIN LISPRO 300 UNITS/3 ML INSULN.PEN. SQ SCH ×2 (07:23→12:00)
[2017-10-17] MEDS: LACTOBACILLUS RHAMNOSUS GG 1 CAPSULE. PO SCH (08:50)
[2017-10-17] MEDS ORDERED: ENOXAPARIN 40 MG/0.4 ML SYRINGE. SQ SCH (09:00)
[2017-10-17 11:00] VITALS: BP 139/88
[2017-10-17] MEDS: MEROPENEM 1 GM in IV NORMAL SALINE 100ML 100 ML IV SCH (11:30)
[2017-10-17] MEDS ORDERED: CIPR500T PO (11:39)
[2017-10-17] MEDS ORDERED: MAGN400T3 PO (11:39)
[2017-10-17] MEDS ORDERED: METR500T PO (11:40)
--- NOTE | 2017-10-17 12:43 | NUR ---
Discharge Note: MARICARMEN LUBIN J1 [facility] Discharge instructions and discharge home medications reviewed with PATIENT & SPOUSE and a copy given. All questions have been answered and understanding verbalized. The following instructions and handouts were given: MEDICATIONS, FOLLOW UP INSTRUCTIONS, EDUCATIONAL HANDOUTS AND PRESCRIPTIONS GIVEN. Discontinued lines and drains: PERIPHERAL IV REMOVED WITH NO COMPLICATIONS. Patient discharged to HOME with SPOUSE via PRIVATE VEHICLE.
--- NOTE | 2017-10-17 21:55 | DS ---
DATE OF DISCHARGE: 10/17/2017 HOSPITAL COURSE: The patient is a 61-year-old female patient was admitted on 10/13/2017 with abdominal pain, some nausea, but no vomiting, no diarrhea and also complaining of being very weak, wobbly, dizzy, and was evaluated in the Emergency Room. Her lab work showed stacking hypokalemia with the potassium only 2 mEq per liter, also mildly deranged liver enzymes, although her total bilirubin and alkaline phosphatase were normal. Her D-dimer was elevated and she was admitted on IV ceftriaxone and Zithromax for questionable pneumonia. Subsequently, we did a CT scan of the abdomen and pelvis, which showed she has acute diverticulitis. As her liver enzymes continued to deteriorate, we switched her antibiotic. Eventually, she was started on meropenem and her liver enzymes started trending down. The patient's potassium and magnesium were replenished. The patient has no further episodes of abdominal pain, no nausea, vomiting and the decision was made to discharge her home to finish the treatment for her acute diverticulitis. As she has profound hypokalemia for no obvious reason, I recommended that the patient needs to be seen by an disability case manager and/or purchasing intern ____. PHYSICAL EXAMINATION: GENERAL: When I saw her today, she was resting slightly propped up in bed, in no apparent respiratory distress, slightly pale, but no jaundice, cyanosis, or thyromegaly. No jugular venous distension. No lower limb edema. VITAL SIGNS: His heart rate was 83, blood pressure was 132/83, her temperature was 98.4, respiratory rate was 18, and oxygen saturation was 95%. HEAD, EYES, EARS, NOSE AND THROAT: Showed normocephalic, atraumatic. NECK: Supple. HEART: Showed normal first and second heart sounds with no gallop, rub or murmur. CHEST: Clear to auscultation. No crepitation or rhonchi. ABDOMEN: Distended, soft, nontender. No guarding or rigidity. No organomegaly. Her hernial orifice was intact. Bowel sounds normal. NEUROLOGICAL: She was here, she was awake, alert, responding appropriately. Her cranial nerves are intact. She moves extremities without difficulty. She ambulates without assistance or assistive devices. Her intake was 1000. No output was recorded. LABORATORY DATA: Her lab work this morning showed a serum sodium 141, potassium 4.4, chloride 106, bicarbonate 28, anion gap of 7, BUN 7, creatinine 0.8, estimated GFR was 72 mL per minute. Her glucose was 141, calcium was 8.9, magnesium was 1.6. Her white cell count was 3800, hemoglobin 10, hematocrit 30, MCV 84, and platelet count of ____. DISCHARGE MEDICATIONS: She was discharged home on ciprofloxacin 500 mg twice a day for 5 days, Flagyl 500 mg 3 times a day for 5 days, and magnesium oxide 400 mg twice a day. She will continue atorvastatin calcium 80 mg at bedtime, levothyroxine 125 mcg once a day, omega-3 fatty acids once a day, and Micardis 80 mg once a day. FINAL DISCHARGE DIAGNOSES: 1. Acute diverticulitis. 2. Profound hypokalemia, resolved. 3. Hypomagnesemia. 4. Hyperlipidemia. 5. Hypothyroidism. 6. Hypertension. DISPOSITION: The patient was advised to make an appointment with the purchasing intern to investigate her profound hypokalemia. CHACHA WYMAN MD DR: QUINTON/oksana JOB#: [id number] / [id number]
== END 2017-10-17 12:30 | disposition home or self-care (01) | DRG 391 ==
LOC: ER 23:54 → ICU 10-13 → 1 SOUTH 10-16 18:03
PROVIDERS: ADMIT Internal Medicine; ATTEND Internal Medicine
DX: K57.92 Diverticulitis of intestine, part unspecified, without perforation or abscess without bleeding (principal); J18.9 Pneumonia, unspecified organism; E83.42 Hypomagnesemia; E87.6 Hypokalemia; E86.0 Dehydration; R79.1 Abnormal coagulation profile; E03.9 Hypothyroidism, unspecified; E11.9 Type 2 diabetes mellitus without complications; E78.5 Hyperlipidemia, unspecified; I10 Essential (primary) hypertension; Z86.79 Personal history of other diseases of the circulatory system; Z90.49 Acquired absence of other specified parts of digestive tract; Z95.1 Presence of aortocoronary bypass graft; Z88.8 Allergy status to other drugs, medicaments and biological substances
CPT/HCPCS: 36415; 71046; 74176; 78582; 80048; 80053; 80076; 81001; 82533; 82553; 82947; 83036; 83605; 83690; 83735; 83880; 84443; 84484; 85025; 85027; 85379; 85610; 85730; 87040; 87070; 87086; 87641; 87804; 87880; 93005; 93970; 94640; 96361; 96372; 96374; A9540; A9558; J0456; J0696; J1650; J1815; J2185; J2405; J3475; J3490; J7042; J7120; J7620; Q0162; 99285-25

== ENCOUNTER → 2017-11-14 | Outpatient (CLI) | payer OTHER ==
[2017-10-17 11:00] VITALS: BP 139/88
[~2017-11-14] MED LIST changes: +CIPR500T PO; +IOHEXOL 300 MG/ML 75 ML VIAL. IV ONE; +MAGN400T3 PO
--- NOTE | 2017-11-14 11:28 | RAD ---
CT ABD PELV W/ORAL IV CONTRAST dated 11/14/2017 10:29 AM Indication: Change in stool habits.Omni 300, 75ml IV. Change in stool habit. Hx AAA repair, cholecystectomy . Comparison: 10/13/2017 Technique: Contiguous axial imaging the abdomen and pelvis performed after the administration of oral contrast and 75 cc Omnipaque 300. One or more of the following individualized dose reduction techniques were utilized for this examination: 1. Automated exposure control 2. Adjustment of the mA and/or kV according to patient size 3. Use of iterative reconstruction technique Findings: Limited images of lung bases are clear. Heart size within normal limits. No pleural or pericardial effusion. Liver, spleen, pancreas, adrenal glands and kidneys are unremarkable. No hydronephrosis. The gallbladder is surgically absent. Partially opacified GI tract normal in caliber and contour. No focal bowel wall thickening. No inflammatory stranding in the mesentery. The appendix is normal in caliber. There are a few scattered diverticula throughout the colon. No pericolic inflammatory changes. There is evidence of prior infrarenal abdominal aortic aneurysm repair, similar to prior study. No periaortic fluid collection. No retroperitoneal or mesenteric adenopathy. Images of pelvis show nondistended urinary bladder. Uterus and adnexa are unremarkable. No free fluid or lymphadenopathy. Bone windows show no acute findings. Multilevel spondylosis. IMPRESSION: 1. Diverticulosis with no evidence of acute diverticulitis. 2. Status post infrarenal abdominal aortic aneurysm repair, stable from prior exam. 3. No new or acute findings. Electronically signed by: Gabo Pham MD (11/14/2017 11:24 AM) [id number]
== END | disposition home or self-care (01) ==
LOC: CT 09:01
PROVIDERS: ATTEND Family Medicine
DX: K57.90 Diverticulosis of intestine, part unspecified, without perforation or abscess without bleeding (principal); I10 Essential (primary) hypertension; E11.9 Type 2 diabetes mellitus without complications; E78.5 Hyperlipidemia, unspecified; E78.00 Pure hypercholesterolemia, unspecified; E03.9 Hypothyroidism, unspecified; E87.6 Hypokalemia; Z86.79 Personal history of other diseases of the circulatory system
CPT/HCPCS: 74177

== ENCOUNTER → 2019-03-14 | Outpatient (CLI) | payer MEDICARE, OTHER ==
[~2019-03-14] MED LIST changes: -IOHEXOL 300 MG/ML 75 ML VIAL. IV ONE; -MAGN400T3 PO; +MAGN400T5 PO
[2019-03-14 09:38] LABS: BASO % 1 % (0-3); EOS # 0.1 x10^3/uL (0.0-0.7); EOS % 3 % (0-3); HEMATOCRIT 38.3 % (36.0-47.0); HEMOGLOBIN 12.5 g/dL (12.0-15.5); LYMPH # 1.5 x10^3/uL (1.0-4.8); LYMPH % 30 % (24-48); MEAN CORPUSCULAR HEMOGLOBIN 29 pg (25-35); MEAN CORPUSCULAR HGB CONC 33 g/dL (31-37); MEAN CORPUSCULAR VOLUME 88 fL (79-100); MONO # 0.4 x10^3/uL (0.0-1.1); MONO % 8 % (0-9); NEUT % 59 % (31-73); PLATELET COUNT 272 x10^3/uL (140-400); RED BLOOD COUNT 4.34 x10^6/uL (3.50-5.40); RED CELL DISTRIBUTION WIDTH 15.7 % (11.5-14.5); WHITE BLOOD COUNT 5.2 x10^3/uL (4.0-11.0)
[2019-03-14 10:03] LABS: ALBUMIN 3.5 g/dL (3.4-5.0); CALCIUM 8.7 mg/dL (8.5-10.1); CREATININE 0.9 mg/dL (0.6-1.0); GFR 62.8; PHOSPHORUS 3.9 mg/dL (2.6-4.7); POTASSIUM 3.8 mmol/L (3.5-5.1)
[2019-03-15 08:08] LABS: UR PROTEIN 4.2 mg/dL (Not Estab.)
[2019-03-15 10:13] LABS: TOTAL SERUM CREATININE 0.8 mg/dL (0.57-1.00); TOTAL URINE CREATININE 55.3 mg/dL (Not Estab.)
== END | disposition home or self-care (01) ==
LOC: LAB 08:50
PROVIDERS: ATTEND Internal Medicine Nephrology
DX: E11.65 Type 2 diabetes mellitus with hyperglycemia (principal); I10 Essential (primary) hypertension; E87.6 Hypokalemia; N25.1 Nephrogenic diabetes insipidus; R80.9 Proteinuria, unspecified; Z68.29 Body mass index [BMI] 29.0-29.9, adult
CPT/HCPCS: 36415; 80069; 82575; 84156; 85025

== ENCOUNTER 2019-03-31 06:09 | Emergency (ER) | payer MEDICARE, OTHER ==
[~2019-03-31] VITALS: Ht 154.9 cm; Wt 72.6 kg
[2019-03-31] MEDS ORDERED: PROCHLORPERAZINE 10 MG/2 ML VIAL. IV ONE (07:30)
[2019-03-31] MEDS ORDERED: IV NORMAL SALINE 1,000ML 1,000 ML IV ONE (07:30)
[2019-03-31 07:35] VITALS: BP 152/115
[2019-03-31 07:43] LABS: BASO # 0.1 x10^3/uL (0.0-0.2); BASO % 1 % (0-3); EOS # 0.1 x10^3/uL (0.0-0.7); EOS % 1 % (0-3); HEMATOCRIT 40.7 % (36.0-47.0); HEMOGLOBIN 13.2 g/dL (12.0-15.5); LYMPH % 11 % (24-48); MEAN CORPUSCULAR HEMOGLOBIN 29 pg (25-35); MEAN CORPUSCULAR HGB CONC 33 g/dL (31-37); MEAN CORPUSCULAR VOLUME 88 fL (79-100); MONO # 0.5 x10^3/uL (0.0-1.1); MONO % 5 % (0-9); NEUT # 7.7 x10^3uL (1.8-7.7); NEUT % 83 % (31-73); PLATELET COUNT 261 x10^3/uL (140-400); RED BLOOD COUNT 4.63 x10^6/uL (3.50-5.40); WHITE BLOOD COUNT 9.3 x10^3/uL (4.0-11.0)
[2019-03-31 08:19] LABS: ALBUMIN 3.8 g/dL (3.4-5.0); CALCIUM 9.1 mg/dL (8.5-10.1); CREATININE 0.9 mg/dL (0.6-1.0); GFR 62.8; POTASSIUM 3.4 mmol/L (3.5-5.1); TOTAL BILIRUBIN 0.5 mg/dL (0.2-1.0); TOTAL PROTEIN 7.8 g/dL (6.4-8.2)
[2019-03-31 08:38] LABS: BACTERIA,URINE 0 /HPF (0-FEW); BILIRUBIN,URINE NEG (NEG); CLARITY,URINE CLEAR; COLOR,URINE YELLOW; GLUCOSE,URINE NEG (NEG); NITRITE,URINE NEG (NEG); RBC,URINE 0 /HPF (0-2); SQUAMOUS EPITHELIAL CELL,UR OCC /LPF; UROBILINOGEN,URINE 0.2 mg/dL (0.2 mg/dL); WBC,URINE 0 /HPF (0-4)
[2019-03-31] MEDS ORDERED: IOHEXOL 300 MG/ML 75 ML VIAL. IV ONE (08:45)
[2019-03-31 08:53] LABS: INFLUENZA A PATIENT NEGATIVE (NEGATIVE); INFLUENZA B PATIENT NEGATIVE (NEGATIVE)
--- NOTE | 2019-03-31 09:15 | RAD ---
Examination: CT HEAD WO CONTRAST History: Severe headaches and nausea Comparison/Correlation: None Findings: Axial images of the head were obtained without contrast. Mild atrophy is present. No intracranial hemorrhage, midline shift, or mass effect. Chronic ischemic changes in the white matter is noted. No suspicious bony process. Visualized paranasal sinuses are unremarkable. Impression: No acute processes. RS Compliance Statement: One or more of the following individualized dose reduction techniques were utilized for this examination: 1. Automated exposure control 2. Adjustment of the mA and/or kV according to patient size 3. Use of iterative reconstruction technique Electronically signed by: Shola Grimaldo MD (03/31/2019 9:13 AM) [id number]
--- NOTE | 2019-03-31 09:34 | RAD ---
Examination: CT ABD PELV W/ IV CONTRST ONLY History: Headache, nausea, vomiting, diarrhea Comparison/Correlation: None Findings: Axial images of the abdomen and pelvis were obtained following IV contrast. Sagittal and coronal reformatted images were provided. Right posterior basilar discoid atelectasis is present. Small hiatal hernia is present. Liver is unremarkable with a low-attenuation lesion in the left hepatic lobe which has remained stable. Spleen is normal. Pancreas is normal. Cholecystectomy evident. Upper midline abdominal wall scarring is noted. Surgical clips are present subjacent to the upper abdominal wall. Infrarenal abdominal aortic aneurysm repair noted. Diverticulosis of the colon is present. No loculated collections or acute inflammatory finding. Appendix is normal. No inflammatory findings about the cecum. Uterus is unremarkable. Urinary bladder is unremarkable. No bowel obstruction. L5-S1 disc space narrowing and endplate sclerosis and vacuum phenomenon is present. Central disc-osteophyte protrusion noted at L5-S1. Impression: Hiatal hernia. Diverticulosis. No acute inflammatory process or collection. No suspicious new finding. PQRS Compliance Statement: One or more of the following individualized dose reduction techniques were utilized for this examination: 1. Automated exposure control 2. Adjustment of the mA and/or kV according to patient size 3. Use of iterative reconstruction technique Electronically signed by: Shola Grimaldo MD (03/31/2019 9:31 AM) [facility]
--- NOTE | 2019-03-31 12:12 | PHYS DOC ---
Past History Past Medical History: Diabetes, High Cholesterol, Hypertension, Hypothyroid, Other Additional Past Medical Histor: AAA Past Surgical History: Cholecystectomy, Other Alcohol Use: None Drug Use: None Adult General Chief Complaint Chief Complaint: HEADACHE HPI HPI Patient is a 63-year-old female presenting with nausea vomiting abdominal discomfort headache just not feeling well had some chills earlier in the day no fever that she knows of she just did not feel well starting last night gradual onset slowly worsening headache does not usually get headaches also comments of abdominal pain she has had abdominal pain before she has intermittent diarrhea she was struggling with that as well. She is worried that she might have an infection because she has diverticulosis as well as a history of AAA status post repair Review of Systems Review of Systems Constitutional: no change in mild chronic cough Cardiovascular: No additional information not addressed in HPI [] GI: Musculoskeletal: Denies back pain or joint pain [] Integument: Denies rash or skin lesions [] Neurologic: Denies , focal weakness or sensory changes [] Endocrine: Denies polyuria or polydipsia [] All other systems were reviewed and found to be within normal limits, except as documented in this note. Current Medications Current Medications Current Medications Medications (Trade) Dose Ordered Sig/Maxime Start Time Stop Time Status Last Admin Dose Admin Fentanyl Citrate (Fentanyl 2ml Vial) 50 mcg 1X ONCE 03/31/19 07:30 03/31/19 07:47 DC 03/31/19 07:42 50 MCG Iohexol (Omnipaque 300 Mg/ml) 75 ml 1X ONCE 03/31/19 08:45 03/31/19 08:46 DC 03/31/19 08:50 75 ML Prochlorperazine Edisylate (Compazine) 10 mg 1X ONCE 03/31/19 07:30 03/31/19 07:47 DC 03/31/19 07:42 10 MG Sodium Chloride 1,000 ml @ 1,000 mls/hr 1X ONCE 03/31/19 07:30 03/31/19 08:29 DC 03/31/19 07:41 1,000 MLS/HR Allergies Allergies Allergies Coded Allergies Type Severity Reaction Last Updated Verified sulfamethoxazole Allergy Intermediate Rash 04/16/13 Yes trimethoprim Allergy Intermediate Rash 04/16/13 Yes Physical Exam Physical Exam Constitutional: Well developed, well nourished, no acute distress, non-toxic appearance. [] HENT: Normocephalic, atraumatic, bilateral external ears normal, oropharynx moist, no oral exudates, nose normal. [] Eyes: PERRLA, EOMI, conjunctiva normal, no discharge. [] Neck: Normal range of motion, no tenderness, supple, no stridor. [] Cardiovascular:Heart rate regular rhythm, no murmur [] Lungs & Thorax: Bilateral breath sounds clear to auscultation [] Abdomen: Bowel sounds normal, soft, mild rlq tenderness, no masses, no pulsatile masses. [] Skin: Warm, dry, no erythema, no rash. [] Back: No tenderness, no CVA tenderness. [] Extremities: No tenderness, no cyanosis, no clubbing, ROM intact, no edema. [] Neurologic: Alert and oriented X 3, normal motor function, normal sensory functi on, no focal deficits noted. [] Psychologic: Affect normal, judgement normal, mood normal. [] Current Patient Data Vital Signs Vital Signs Date Time Temp Pulse Resp B/P (MAP) Pulse Ox O2 Delivery O2 Flow Rate FiO2 03/31/19 07:35 70 152/115 (127) 97 Room Air 03/31/19 06:28 97.5 18 Lab Results Laboratory Tests Test 03/31/19 07:27 03/31/19 07:47 White Blood Count 9.3 x10^3/uL (4.0-11.0) Red Blood Count 4.63 x10^6/uL (3.50-5.40) Hemoglobin 13.2 g/dL (12.0-15.5) Hematocrit 40.7 % (36.0-47.0) Mean Corpuscular Volume 88 fL (79-100) Mean Corpuscular Hemoglobin 29 pg (25-35) Mean Corpuscular Hemoglobin Concent 33 g/dL (31-37) Red Cell Distribution Width 16.0 % (11.5-14.5) H Platelet Count 261 x10^3/uL (140-400) Neutrophils (%) (Auto) 83 % (31-73) H Lymphocytes (%) (Auto) 11 % (24-48) L Monocytes (%) (Auto) 5 % (0-9) Eosinophils (%) (Auto) 1 % (0-3) Basophils (%) (Auto) 1 % (0-3) Neutrophils # (Auto) 7.7 x10^3uL (1.8-7.7) Lymphocytes # (Auto) 1.0 x10^3/uL (1.0-4.8) Monocytes # (Auto) 0.5 x10^3/uL (0.0-1.1) Eosinophils # (Auto) 0.1 x10^3/uL (0.0-0.7) Basophils # (Auto) 0.1 x10^3/uL (0.0-0.2) Sodium Level 141 mmol/L (136-145) Potassium Level 3.4 mmol/L (3.5-5.1) L Chloride Level 102 mmol/L (98-107) Carbon Dioxide Level 27 mmol/L (21-32) Anion Gap 12 (6-14) Blood Urea Nitrogen 11 mg/dL (7-20) Creatinine 0.9 mg/dL (0.6-1.0) Estimated GFR (Cockcroft-Gault) 62.8 BUN/Creatinine Ratio 12 (6-20) Glucose Level 137 mg/dL (70-99) H Calcium Level 9.1 mg/dL (8.5-10.1) Total Bilirubin 0.5 mg/dL (0.2-1.0) Aspartate Amino Transferase (AST) 20 U/L (15-37) Alanine Aminotransferase (ALT) 24 U/L (14-59) Alkaline Phosphatase 111 U/L (46-116) Total Protein 7.8 g/dL (6.4-8.2) Albumin 3.8 g/dL (3.4-5.0) Albumin/Globulin Ratio 1.0 (1.0-1.7) Lipase 142 U/L (73-393) Urine Collection Type Unknown Urine Color Yellow Urine Clarity Clear Urine pH 6.5 Urine Specific [place] 1.020 Urine Protein Neg (NEG-TRACE) Urine Glucose (UA) Neg mg/dL (NEG) Urine Ketones (Stick) Neg mg/dL (NEG) Urine Blood Neg (NEG) Urine Nitrite Neg (NEG) Urine Bilirubin Neg (NEG) Urine Urobilinogen Dipstick 0.2 mg/dL (0.2 mg/dL) Urine Leukocyte Esterase Neg (NEG) Urine RBC 0 /HPF (0-2) Urine WBC 0 /HPF (0-4) Urine Squamous Epithelial Cells Occ /LPF Urine Bacteria 0 /HPF (0-FEW) Influenza Type A (Rapid) Negative (NEGATIVE) Influenza Type B (Rapid) Negative (NEGATIVE) EKG EKG [] Radiology/Procedures Radiology/Procedures []Impression: No acute processes. PQRS Compliance Statement: One or more of the following individualized dose reduction techniques were utilized for this examination: 1. Automated exposure control 2. Adjustment of the mA and/or kV according to patient size 3. Use of iterative reconstruction technique Electronically signed by: Shola Santillan MD (03/31/2019 9:13 AM) [facility] DICTATED AND SIGNED BY: SHOLA SANTILLAN MD DATE: 03/31/19912 CC: JADEN COLÓN MD; SHUKRI NEW ~ Impressions: Comparison/Correlation: None Findings: Axial images of the abdomen and pelvis were obtained following IV contrast. Sagittal and coronal reformatted images were provided. Right posterior basilar discoid atelectasis is present. Small hiatal hernia is present. Liver is unremarkable with a low-attenuation lesion in the left hepatic lobe which has remained stable. Spleen is normal. Pancreas is normal. Cholecystectomy evident. Upper midline abdominal wall scarring is noted. Surgical clips are present subjacent to the upper abdominal wall. Infrarenal abdominal aortic aneurysm repair noted. Diverticulosis of the colon is present. No loculated collections or acute inflammatory finding. Appendix is normal. No inflammatory findings about the cecum. Uterus is unremarkable. Urinary bladder is unremarkable. No bowel obstruction. L5-S1 disc space narrowing and endplate sclerosis and vacuum phenomenon is present. Central disc-osteophyte protrusion noted at L5-S1. Impression: Hiatal hernia. Diverticulosis. No acute inflammatory process or collection. No suspicious new finding. PQRS Compliance Statement: One or more of the following individualized dose reduction techniques were utilized for this examination: 1. Automated exposure control 2. Adjustment of the mA and/or kV according to patient size 3. Use of iterative reconstruction technique Electronically signed by: Shola Santillan MD (03/31/2019 9:31 AM) [facility] DICTATED AND SIGNED BY: SHOLA SANTILLAN MD DATE: 03/31/19930 CC: JADEN COLÓN MD; SHUKRI NEW ~ Course & Med Decision Making Course & Med Decision Making Pertinent Labs and Imaging studies reviewed. (See chart for details) []63-year-old female presenting with headache and abdominal pain with some vomiting and chills ER workup including head CT abdominal CT labwork urinalysis influenza are all negative patient was feeling better in the emergency room after treatment and discharged in stable condition perhaps she is coming down with a viral syndrome of some kind Dragon Disclaimer Dragon Disclaimer This electronic medical record was generated, in whole or in part, using a voice recognition dictation system. Departure Departure: Impression: Primary Impression: Nausea and vomiting Disposition: HOME, SELF-CARE Condition: STABLE Patient Instructions: Nausea and Vomiting, [id number] JADEN COLÓN MD Mar 31, 2019 12:12
== END 2019-03-31 09:51 | disposition home or self-care (01) ==
LOC: ER 06:09
DX: R11.2 Nausea with vomiting, unspecified (principal); R51 Headache; R10.31 Right lower quadrant pain; R19.7 Diarrhea, unspecified; E11.9 Type 2 diabetes mellitus without complications; E78.00 Pure hypercholesterolemia, unspecified; I10 Essential (primary) hypertension; E03.9 Hypothyroidism, unspecified; K44.9 Diaphragmatic hernia without obstruction or gangrene; Z90.49 Acquired absence of other specified parts of digestive tract; Z88.2 Allergy status to sulfonamides; Z88.1 Allergy status to other antibiotic agents
CPT/HCPCS: 36415; 70450; 74177; 80053; 81001; 83690; 85025; 87804; 96361; 96374; 96375; 99285; J0780; J3010; Q9967; J7030

== ENCOUNTER → 2019-06-29 | Outpatient (CLI) | payer MEDICARE, OTHER ==
--- NOTE | 2019-07-06 15:04 | RAD ---
History: Routine screening. Technique: Bilateral digital mammographic routine views were obtained with CAD - computer aided detection. Comparison: 04/11/2013, 01/31/2012. Findings: Breast Tissue Density C : The breast tissue is heterogeneously dense. Scattered fibroglandular elements may obscure underlying pathology. There are no suspicious masses, microcalcifications or areas of architectural distortion. Impression: No suspicious findings. BI-RADS Category 1: Negative. Normal interval followup. Your mammogram demonstrates that you have dense breast tissue, which could hide abnormalities, and if you have other risk factors for breast cancer that have been identified, you might benefit from supplemental screening tests that may be suggested by your ordering physician. Dense breast tissue, in and of itself, is a relatively common condition. This information is not provided to cause undue concern, but rather to raise your awareness and to promote discussion with your physician regarding the presence of other risk factors, in addition to dense breast tissue. A report of your mammography results will be sent to you and your physician. You should contact your physician if you have any questions or concerns regarding this report. A mammogram does not have 100% sensitivity and therefore a negative imaging study should not delay further work up of a suspicious abnormality. The patient will receive a letter with the results in the mail. Patient information is entered into the reminder system with a target due date for the next screening mammogram. The patient will receive a reminder. "Our facility is accredited by the [employer] Mammography Program." BI-RADS 1 -- negative findings (within normal)
== END | disposition home or self-care (01) ==
LOC: MAMMO 10:49
PROVIDERS: ATTEND Physician Assistant Medical
DX: Z12.31 Encounter for screening mammogram for malignant neoplasm of breast (principal)
CPT/HCPCS: 77067

== ENCOUNTER 2020-04-22 01:04 | Emergency (ER) | payer MEDICARE, OTHER ==
[~2020-04-22] VITALS: Ht 154.9 cm; Wt 70.5 kg
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
[2020-04-22] MEDS ORDERED: MORPHINE SULFATE 10 MG/ML SYRINGE. SQ ONE (01:45)
[2020-04-22] MEDS ORDERED: IV RINGERS SOLUTION,LACTATED 1,000 ML IV SCH (01:45)
[2020-04-22] MEDS ORDERED: ONDANSETRON PF 4 MG/2 ML VIAL. ONE (01:50)
[2020-04-22] MEDS ORDERED: ONDANSETRON PF 4 MG/2 ML VIAL. IVP ONE ×2 (02:00→03:30)
[2020-04-22 02:03] LABS: BASO # 0.1 x10^3/uL (0.0-0.2); BASO % 1 % (0-3); EOS # 0.1 x10^3/uL (0.0-0.7); EOS % 2 % (0-3); HEMATOCRIT 36.7 % (36.0-47.0); LYMPH # 1.5 x10^3/uL (1.0-4.8); LYMPH % 19 % (24-48); MEAN CORPUSCULAR HEMOGLOBIN 29 pg (25-35); MEAN CORPUSCULAR HGB CONC 33 g/dL (31-37); MEAN CORPUSCULAR VOLUME 88 fL (79-100); MONO # 0.6 x10^3/uL (0.0-1.1); MONO % 8 % (0-9); NEUT # 5.8 x10^3uL (1.8-7.7); NEUT % 71 % (31-73); PLATELET COUNT 372 x10^3/uL (140-400); RED BLOOD COUNT 4.17 x10^6/uL (3.50-5.40); RED CELL DISTRIBUTION WIDTH 16.2 % (11.5-14.5); WHITE BLOOD COUNT 8.2 x10^3/uL (4.0-11.0)
[2020-04-22 02:09] LABS: BACTERIA,URINE FEW /HPF (0-FEW); BILIRUBIN,URINE NEG (NEG); CALCIUM 9.2 mg/dL (8.5-10.1); CLARITY,URINE CLEAR; COLOR,URINE YELLOW; CREATININE 1.4 mg/dL (0.6-1.0); GFR 37.6; GLUCOSE,URINE NEG (NEG); NITRITE,URINE NEG (NEG); POTASSIUM 3.2 mmol/L (3.5-5.1); RBC,URINE OCC /HPF (0-2); SQUAMOUS EPITHELIAL CELL,UR FEW /LPF; UROBILINOGEN,URINE 0.2 mg/dL (0.2 mg/dL)
--- NOTE | 2020-04-22 02:09 | EKG ---
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
[2020-04-22 02:21] LABS: ALBUMIN 3.4 g/dL (3.4-5.0); DIRECT BILIRUBIN 0.1 mg/dL (0.0-0.2); TOTAL BILIRUBIN 0.3 mg/dL (0.2-1.0); TOTAL PROTEIN 7.7 g/dL (6.4-8.2)
[2020-04-22] MEDS ORDERED: IOHEXOL 300 MG/ML 75 ML VIAL. IV ONE (02:30)
[2020-04-22] MEDS ORDERED: CONTRAST GIVEN. MC PRN (02:30)
--- NOTE | 2020-04-22 03:32 | RAD ---
INDICATION: Reason: fall through deck- Lt.spleenand rib tenderness Omni 300 60cc / Spl. Instructions: / History: . COMPARISON: March 2019 CT abdomen TECHNIQUE: Axial CT images obtained through the chest, abdomen with contrast. One or more of the following individualized dose reduction techniques were utilized for this examinat ion: 1. Automated exposure control; 2. Adjustment of the mA and/or kV according to patient size; 3 . Use of iterative reconstruction technique. FINDINGS: Chest: Mild groundglass opacities at the left greater than right lung dependently with some areas of nodular ity. Liver is low density which can be seen with fatty infiltration. Multifocal plaque throughout the vasculature. No evidence of thoracic aortic aneurysm. Portion of ascending thoracic aorta obscured by motion. Small fluid in the pericardial recess which is a common finding. Degenerative changes of the spine. Fractures are identified includin, 10, 11, 12 on the left. ABDOMEN: Degenerative changes of the spine. Multifocal calcific atherosclerosis with postoperative changes to the abdominal aorta with vascular g raft. Liver is low density which can be seen with fatty infiltration. Postcholecystectomy changes. Small fat-containing umbilical hernia. Subcentimeter low-density lesion within the liver anteriorly which is too small to characterize but a lso present on prior. No peripancreatic fluid collection. No perisplenic hemorrhage. Mild prominence of the right renal pelvis. No perirenal hemorrhage bilaterally. Colonic diverticulosis. IMPRESSION: * Multiple left-sided rib fractures. * There is groundglass opacity within the left lung. Given the rib fractures this could be secondary to either atelectasis or alveolar hemorrhage secondary to contusion. * Liver is low density which can be seen with fatty infiltration Electronically signed by: Filipe Tran MD (04/22/2020 3:29 AM) [id number]
--- NOTE | 2020-04-22 04:16 | RAD ---
INDICATION: Reason: Fall through deck- Lt.spleen and rib tenderness / Spl. Instructions: / History: COMPARISON: CT from same day IMPRESSION: 3 views of the chest and abdomen obtained. Cardiac mediastinal silhouette unremarkable. The patient h as multiple left sided rib fractures which are better visualized on the CT but some of them are seen on plain film as well. The groundglass opacity within the left lung is better seen on CT. Air scatter ed throughout large and small bowel in a nonspecific but not grossly obstructive pattern. Electronically signed by: Filipe Tran MD (04/22/2020 4:14 AM) [id number]
[2020-04-22] MEDS ORDERED: ONDA4TAB7 PO (04:40)
[2020-04-22] MEDS ORDERED: HYDR-1179 PO (04:40)
[2020-04-22 05:04] VITALS: BP 109/76
== END 2020-04-22 04:45 | disposition home or self-care (01) ==
LOC: ER 01:04
DX: S22.42XA Multiple fractures of ribs, left side, initial encounter for closed fracture (principal); S27.321A Contusion of lung, unilateral, initial encounter; S30.1XXA Contusion of abdominal wall, initial encounter; E11.9 Type 2 diabetes mellitus without complications; I10 Essential (primary) hypertension; E03.9 Hypothyroidism, unspecified; M19.90 Unspecified osteoarthritis, unspecified site; E78.00 Pure hypercholesterolemia, unspecified; Z88.1 Allergy status to other antibiotic agents; W17.2XXA Fall into hole, initial encounter; Y93.89 Activity, other specified; Y92.89 Other specified places as the place of occurrence of the external cause; Y99.8 Other external cause status
CPT/HCPCS: 36415; 71260; 74022; 74160; 80048; 80076; 81001; 82150; 82550; 83690; 83880; 84484; 85025; 85610; 85730; 87086; 93005; 96361; 96372; 96374; 96376; 99285; J2270; J2405; J7120; Q9967

== ENCOUNTER → 2020-11-13 | Outpatient (CLI) | payer MEDICARE, OTHER ==
[~2020-11-13] MED LIST changes: -CIPR500T PO; +CIPR500T2 PO; +HYDR-1179 PO; +ONDA4TAB7 PO
--- NOTE | 2020-11-13 15:39 | RAD ---
MG 2D BILAT SCREENING 11/13/2020 10:54 AM INDICATION: Asymptomatic screening mammogram. COMPARISON: 06/29/2019, 01/15/2016 TECHNIQUE: 2D CC and MLO projections were obtained of each breast. Left XCCL was obtained. FINDINGS: Breast density: Category B: There are scattered areas of fibroglandular density. Right breast: There are no suspicious microcalcifications, masses or areas of architectural distortio n. Left breast: There are no suspicious microcalcifications, masses or areas of architectural distortion . Bilateral mammogram is compared to prior examinations appears unchanged. IMPRESSION: Negative bilateral mammogram. BI-RADS category: 1; Negative Recommendations: Recommend annual screening mammography in one year. Electronically signed by: Supriya Lopez MD (11/13/2020 3:36 PM) [id number]
== END ==
LOC: MAMMO 10:34
PROVIDERS: ATTEND Physician Assistant Medical
DX: Z12.31 Encounter for screening mammogram for malignant neoplasm of breast (principal)
CPT/HCPCS: 77067